=== PATIENT | male | born 1965 | race Caucasian/White ===

== ENCOUNTER 2020-02-21 07:00 | Observation (INO) ==
[2020-02-21] MEDS ORDERED: Naloxone 0.4 MG/ML INJ IVP PRN (07:33)
[2020-02-21] MEDS ORDERED: Nitroglycerin 0.4 MG TAB.SUBL SL PRN (07:37)
[2020-02-21] MEDS ORDERED: Perflutren Lipid Microsphere 1.3 ML in 0.9 % Sodium Chloride 8.7 ML IVP PRN (08:13)
[2020-02-21] MEDS: Metoprolol XL (24 HR) Succ 50 MG TAB.ER.24H PO SCH (10:07)
[2020-02-21] MEDS: Aspirin Enteric Coated 81 MG Tablet PO SCH (10:07)
[2020-02-21 10:39] LABS: Mean Corpuscular Volume 99.3 fL (83.0-100.0); Red Cell Distribution Width 12.7 % (11.5-14.5)
[2020-02-21 10:41] LABS: Basophils % 0.3 %; Eosinophils % 0.3 %; Hematocrit 44.3 % (37.5-50.1); Hemoglobin 14.8 g/dL (12.9-16.9); Immature Granulocytes % 0.3 % (0-4); Immature Platelets 4.6 % (1.1-6.1); Lymphocytes # 1.8 K/mcL (0.6-4.6); Lymphocytes % 22.8 %; Mean Corpuscular HGB Conc 33.4 g/dL (31.6-35.5); Mean Corpuscular Hemoglobin 33.2 pg (28.0-33.3); Mean Platelet Volume 10.3 fL (9.4-12.4); Monocytes # 0.6 K/mcL (0.0-1.3); Monocytes % 7.4 %; Neutrophils # 5.3 K/mcL (1.6-8.9); Red Blood Count 4.46 M/mcL (4.19-5.50); Segmented Neutrophils % 68.9 %; White Blood Count 7.7 K/mcL (4.3-11.1)
[2020-02-21 11:01] LABS: Alanine Aminotransferase 54 Units/L (7-52); Albumin/Globulin Ratio 1.8 (1.1-2.2); Alkaline Phosphatase 37 Units/L (34-104); Aspartate Amino Transferase 28 Units/L (13-39); BUN/Creatinine Ratio 23 (6-26); Bilirubin,Total 0.6 mg/dL (0.3-1.0); Blood Urea Nitrogen 16 mg/dL (6-20); Calcium 8.9 mg/dL (8.6-10.3); Carbon Dioxide 25 mEq/L (23-29); Chloride 106 mEq/L (98-107); Globulin 2.2 g/dL (2.4-3.5); Glucose 118 mg/dL (70-105); Magnesium 1.9 mg/dL (1.6-2.6); Osmolality,Calculated 288 (280-300); Potassium 3.8 mEq/L (3.5-5.1); Sodium 138 mEq/L (136-145); Total Protein 6.2 g/dL (6.4-8.9); Troponin I < 0.03 ng/mL (< 0.04); eGFR For African Americans > 60 (> 60); eGFR For Non-African Americans > 60 (> 60)
[2020-02-21] MEDS ORDERED: GI Cocktail 40 ML EACH PO ONE (11:02)
[2020-02-21 11:11] LABS: Platelet Count 57 K/mcL (140-400)
[2020-02-21] MEDS: *HR* LORazepam 1 MG TABLET PO PRN ×2 (12:12→20:55)
[2020-02-21] MEDS ORDERED: *HR* Atropine Sulfate 1 MG/10 ML SYRINGE ONE (18:18)
[2020-02-22] MEDS ORDERED: *HR* Enoxaparin 40 MG/0.4 ML SYRINGE SQ SCH (06:00)
[2020-02-22] MEDS: Aspirin Enteric Coated 81 MG Tablet PO SCH (07:01)
[2020-02-22] MEDS: Metoprolol XL (24 HR) Succ 50 MG TAB.ER.24H PO SCH (07:02)
[2020-02-22 07:16] VITALS: BP 131/64
== END 2020-02-22 10:14 | disposition home or self-care (01) ==
LOC: 2ANU
PROVIDERS: ADMIT Student in an Organized Health Care Education/Training Program; ATTEND Student in an Organized Health Care Education/Training Program